=== PATIENT | male | born 1970 | race Caucasian/White ===

== ENCOUNTER 2017-08-02 08:16 | Emergency (ER) | payer OTHER ==
[~2017-08-02] VITALS: Ht 175.3 cm; Wt 74.8 kg
[~2017-08-02 08:16] MED LIST: IBUPROFEN800 M1 PO; TRAMADOL HCL50 M1 PO
[2017-08-02 08:18] VITALS: BP 142/85
--- NOTE | 2017-08-02 08:23 | ED UPPER/LOWER EXTREMITY COMPL ---
History of Present Illness General Chief Complaint: Hip Injury Stated Complaint: RT HIP PAIN Source: patient Exam Limitations: no limitations Vital Signs & Intake/Output Vital Signs & Intake/Output Vital Signs Date Time Temp Pulse Resp B/P B/P Pulse O2 O2 Flow FiO2 Mean Ox Delivery Rate 08/02 0818 96.7 75 18 142/85 98 Room Air Room Air Allergies Coded Allergies: Penicillins (Mild, NAUSEA 08/26/15) Reconcile Medications Ibuprofen 800 MG TABLET 1 TAB PO TID PRN PAIN Methocarbamol (Robaxin) 500 MG TABLET 1 TAB PO TID PRN MUSCLE SPASMS Naproxen 500 MG TABLET 1 TAB PO BID PRN PAIN Tramadol HCl 50 MG TABLET 1 TAB PO Q6 PRN BREAKTHROUGH PAIN Triage Note: PT TO ED WITH C/O RIGHT HIP PAIN SINCE TUESDAY, GETTING WORSE OVER TIME, WORSE STANDING AND GOING UP STAIRS, LAST STRENUOUS ACTIVITY WAS YARD WORK, RAKING, LIFTING ON TUESDAY. Triage Nurses Notes Reviewed? yes Onset: Gradual Duration: day(s): (4) Timing: no prior history Severity: moderate Pain/Injury Location: Right: Hip. Method of Injury: unknown Modifying Factors: Improves With: immobilization. Worsens With: movement. HPI: Patient is a 47-year-old male presenting to the emergency department with chief complaint of right hip pain after raking the leaves 4 days ago. Patient reports pain is achy throbbing intermittently radiating to the right knee. Denies any weakness in the lower extremities. Positive right low back pain as well. Denies any urinary incontinence or retention. Take a dose of Advil this morning with some relief. Pain worse with ambulation. No history of injury. Denies falls or trauma. Denies any other injury. No urinary frequency urgency or dysuria. No hematuria. Denies abdominal pain. Past History Travel History Traveled to [place] past 21 day No Medical History Any Pertinent Medical History? see below for history Neurological: NONE EENT: NONE Cardiovascular: NONE Respiratory: NONE Gastrointestinal: NONE Hepatic: NONE Renal: NONE Musculoskeletal: NONE Psychiatric: NONE Endocrine: NONE Blood Disorders: NONE Cancer(s): NONE BINDER LOCKSTITCH/Reproductive: NONE Surgical History Surgical History: non-contributory Psychosocial History What is your primary language Jordanian Tobacco Use: Never used ETOH Use: occasional use Illicit Drug Use: denies illicit drug use Family History Hx Contributory? No Review of Systems Review of Systems Constitutional: Reports: no symptoms. Comments Review of systems: See HPI, All other systems negative. Constitutional, no chills fever or weight loss HEENT: No visual changes no sore throat no congestion Cardiovascular: No chest pain ,palpitation Skin, no jaundice no rashes Respiratory: No dyspnea cough sputum GI: No nausea no vomiting : No dysuria No hematuria Muscle skeletal: no back pain, no neck pain, Neurologic: No numbness no confusion NO HEADACHES Psych: No stress anxiety or depression,. Heme/endocrine: No bruising no bleeding no polyuria or polydipsia Immunology: No splenectomy or history of AIDS Physical Exam Physical Exam General Appearance: well developed/nourished, no apparent distress, alert, awake , comfortable Comments: Well-developed well-nourished person in no acute distress HEENT: Atraumatic, normocephalic Neck: Full range of motion, no C-spine tenderness. Back: Tender palpation in the right lumbar paraspinal region. Full range of motion. Negative straight leg raise bilaterally. Cardiovascular: Regular rate and rhythms no murmurs rubs or gallops, normal JVP Respiratory: Chest nontender. No respiratory distress.breath sounds clear to auscultation bilaterally Abdomen: Soft, nontender nondistended Extremity: No edema, no calf tenderness to palpation, normal and equal pulses. Tenderness to palpation of the right lateral thigh, pain with right hip adduction. Full range of motion present in the lower extremities bilaterally. Full range of motion of upper extremities without difficulty or pain. Neuro: Alert oriented x3, motor sensory normal, patellar reflexes are 2+ bilaterally. Skin: No appreciable rash on exposed skin, skin is warm and dry. Psych: Mood and affect is normal, memory and judgment is normal. Progress Differential Diagnosis: contusion, dislocation, fracture, sprain, tendon injury Plan of Care: Likely muscular strain. Patient chooses. Patient is nontoxic. He will follow up with PCP and orthopedist symptoms persist. She with anti-inflammatories and muscle relaxers. Patient had a dose of anti-inflammatory prior to arrival, declined pain medication here in the emergency department. Departure Departure Time of Disposition: 828 Disposition: HOME OR SELF CARE Condition: Stable Clinical Impression Primary Impression: Hip sprain Qualifiers: Encounter type: initial encounter Laterality: right Qualified Code: S73.101A - Unspecified sprain of right hip, initial encounter Referrals: Patient Has No Primary Care Dr (PCP/Family) Brigitte REED,Ray Causey Additional Instructions: Follow-up with orthopedics if symptoms persist. Rest ice and elevate affected extremity. Take anti-inflammatories and muscle relaxer as directed. Do not drive while taking muscle relaxant. Return for worsening symptoms or concerns. Departure Forms: Customer Survey General Discharge Information Prescriptions: Current Visit Scripts Methocarbamol (Robaxin) 1 TAB PO TID PRN MUSCLE SPASMS #15 TAB Naproxen 1 TAB PO BID PRN PAIN #20 TAB
[2017-08-02] MEDS ORDERED: ROBAXIN500 M1 PO (08:31)
[2017-08-02] MEDS ORDERED: NAPROXEN500 M2 PO (08:31)
== END 2017-08-02 08:37 ==
LOC: ERH 08:16
DX: S73.101A Unspecified sprain of right hip, initial encounter (principal); X58.XXXA Exposure to other specified factors, initial encounter; Y93.H1 Activity, digging, shoveling and raking; Y92.9 Unspecified place or not applicable